=== PATIENT | female | born 1955 | race Caucasian/White ===

== ENCOUNTER 2018-04-10 20:43 | Emergency (ER) | payer OTHER ==
[~2018-04-10] VITALS: Ht 158.8 cm; Wt 87.0 kg
[~2018-04-10 20:43] MED LIST: ASPI-320 PO; ATOR10TA82 PO; EFF50 PO; FLUT0.15 INH; HYZ/10015 PO; LEVO137T3 PO; LMC25 PO; LPR25 PO; PLV75 PO
[2018-04-10 20:53] VITALS: BP 143/69; PULSE 80; TEMP 36.7; O2SAT 96; Ht 158.8 cm; Wt 87.0 kg
--- NOTE | 2018-04-10 21:40 | EMERGENCY ROOM VISIT NOTE ---
History First contact with patient: 20:56 Chief Complaint: BITE Stated Complaint: SNAKE BITE ON R FINGER History of Present Illness The patient is a 62 year old female who presents to the Emergency Room via private vehicle with complaints of "snake bite on right finger". The patient states earlier today about 45 minutes prior to arrival she was at home, when she noticed a snake in the doorway, and she bent down to throat out of the house. She notes that when she did so it bit her on the right fourth digit on the lateral aspect. She notes that since that time she has felt well and has had no symptoms. She has no swelling in the finger. She believes it is a milk snake. She does not think it is a copperhead. The female in the room presents a picture of the snake. Patient notes her tetanus is up-to-date. Review of Systems A complete 6-point Review of Systems was discussed with the patient, with pertinent positives and negatives listed in the History of Present Illness. All remaining Review of Systems questions can be considered negative unless otherwise specified. Past Medical/Surgical History Medical Problems: (1) Anxiety (2) Depression (3) Hyperlipidemia (4) Hypertension (5) Hypothyroidism (6) Obesity (7) Tobacco abuse Surgical Problems: (1) S/P cataract surgery Family History FH: CABG (coronary artery bypass surgery) FATHER Hypertension FATHER Stent BROTHER SISTER Stroke FATHER Social History Smoking Status: Current Every Day Smoker Drug Use: none Marital Status: in relationship Housing Status: lives with friends Occupation Status: employed Current/Historical Medications Scheduled Aspirin (Aspirin EC Low Dose), 81 MG PO QAM Atorvastatin (Lipitor), 20 PO QAM Clopidogrel Bisulfate (Clopidogrel), 75 MG PO QAM Hctz/Losartan (Hyzaar 25MG/100MG), 1 TAB PO DAILY Lamotrigine (Lamotrigine), 25 MG PO QAM Levothyroxine Sodium (Levothyroxine Sodium), 137 MCG PO DAILY Metoprolol Tartrate (Lopressor), 25 MG PO Q12 Venlafaxine Hcl (Effexor *), 75 MG PO DAILY Miscellaneous Medications Fluticasone Propionate (Nasal) (Flonase Allergy Relief), 2 SPRAYS INH Physical Exam Vital Signs Date Time Temp Pulse Resp B/P (MAP) Pulse Ox O2 Delivery O2 Flow Rate FiO2 04/10/18 20:53 36.7 80 20 143/69 96 Room Air Physical Exam VITAL SIGNS - Vital signs and nursing notes were reviewed. Stable. Afebrile. GENERAL -62-year-old female appearing her stated age who is in no acute distress. She is sitting upright talking without difficulty. Communicates well with provider and answers questions appropriately. SKIN -on the lateral aspect of the patient's right fourth digit there are small abrasions noted with potential puncture wound but no separation of the skin. No active bleeding. No swelling. No erythema. HEAD - NC/AT. EYES -sclera anicteric. EARS - No deformities of external structures noted on gross examination bilaterally. NOSE - Midline and without cyanosis. No epistaxis or purulent drainage noted. Septum midline without deviation or septal hematoma noted. MOUTH/OROPHARYNX - Without perioral cyanosis. Airway widely patent. EXTREMITIES - No clubbing or peripheral cyanosis. Skin changes noted above. Full range of motion of the right fourth digit. No tenderness. NEUROLOGIC - Cranial nerves II through XII grossly intact. Sensory intact to light touch throughout. PSYCH - A&O, and cooperates fully with examiner. Pt is very pleasant and interacts well with examiner. Medical Decision & Procedures Medical Decision Patient was seen and evaluated as above in room D5. Review was performed of nursing notes and vital signs. Picture appears to be an eastern milk snake. I do not suspect this to be poisonous. 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 Patient declined this, noting that she does not believe it is a poisonous snake and would like to go home. I will respect patient's wishes, and I cleansed the wound with Betadine and normal saline and placed a bacitracin dressing. Per request she was discharged home and is to follow with the family doctor or return with worsening. Case discussed with the attending physician. The patient was educated upon management, had questions answered prior to discharge, and was discharged home in good condition. While the patient was she exhibited no signs of anaphylaxis or allergic reaction. She had no pain in the finger, no swelling in the finger. In the evaluation and treatment of this patient the following differential diagnoses were entertained: Snake bite, anaphylaxis, among others. Impression Primary Impression: Snake bite Departure Information Dispostion Home / Self-Care Condition GOOD Referrals Zari Yarbrough M.D. (PCP) Patient Instructions My [facility] Additional Instructions Proper wound care is essential for adequate wound healing and infection prevention. You can shower and clean the wound with soap and water. Do not scour over the wound, pat dry with a towel. Look for signs of infection of the wound including: increased pain, swelling, foul discharge, streaking, or increased temperature. If any of these are noticed you should return to the Emergency Department for further assessment and treatment. As with any laceration you may have received nerve damage to the surrounding tissues. This damage may or may not be permanent. If you develop any swelling of the hand, trouble breathing, hives or any new/ concerning symptoms please return immediately. Return to the emergency department if your symptoms worsen despite treatment course outlined above.
== END 2018-04-10 21:56 | disposition home or self-care (01) ==
LOC: C.EDB 20:45 → C.EDD 21:56
DX: S61.254A Open bite of right ring finger without damage to nail, initial encounter (principal); F32.9 Major depressive disorder, single episode, unspecified; E78.5 Hyperlipidemia, unspecified; I10 Essential (primary) hypertension; E03.9 Hypothyroidism, unspecified; Z79.82 Long term (current) use of aspirin; Z79.899 Other long term (current) drug therapy; F17.200 Nicotine dependence, unspecified, uncomplicated; W59.11XA Bitten by nonvenomous snake, initial encounter

== ENCOUNTER 2019-10-08 15:40 | Observation (INO) ==
--- OUTSIDE RECORDS SUMMARY | 2019-10-08 15:43 | External Medical Summary | Continuity of Care Document ---
:1955 Author Name Rudy Astorga Address Unavailable Unavailable , Care Team Providers Name Role Phone Cinthia [email or web address] PCP, UNKNOWN Unavailable Unavailable Problems Active medical history not documented Allergies and Adverse Reactions Allergy history not documented Medications Medications not documented Procedures Procedures not documented Immunizations Immunizations not documented Plan of Treatment Planned Observations Planned Goals not documented Results No Known Results Results not documented
[2019-10-08 16:49] LABS: Hematocrit (blood only) 39.7 % (37-47); Hemoglobin 13.5 g/dL (12.0-16.0); Immature Granulocytes # (auto) 0.01 K/uL (0.00-0.02); Immature Granulocytes % (auto) 0.2 %; Lymphocytes % (auto) 28.2 %; Mean Corpuscular Hemoglobin 32.5 pg (25-34); Mean Corpuscular Volume 95.4 fL (80-100); Mean Platelet Volume 9.9 fL (7.4-10.4); Monocytes # (auto) 0.44 K/uL (0.11-0.59); Monocytes % (auto) 10.4 %; Neutrophils % (auto) 61.2 %; Platelet Count 174 K/uL (130-400); RDW Coefficient of Variation 12.9 % (11.5-14.5); RDW Standard Deviation 45.1 fL (36.4-46.3); Red Blood Count 4.16 M/uL (4.2-5.4); White Blood Count 4.25 K/uL (4.8-10.8)
--- NOTE | 2019-10-08 16:52 | XRay Report ---
XR chest 1V portable CLINICAL HISTORY: Chest Pain pain COMPARISON STUDY: 10/28/2015 FINDINGS: The bones soft tissues and hemidiaphragms are normal. The cardiomediastinal silhouette is n ormal. The lungs are clear. The pulmonary vasculature is normal. IMPRESSION: Negative chest. ACT 112: Negative or not required by law. The above report was generated using voice recognition software. It may contain grammatical, syntax or spelling errors. Electronically signed by: Jadiel Grant M.D. 10/08/2019 4:51 PM
[2019-10-08 17:12] LABS: Alanine Aminotransferase 36 U/L (12-78); Albumin Level 3.8 gm/dl (3.4-5.0); Aspartate Aminotransferase 22 U/L (15-37); BUN Creatinine Ratio 15.6 (10-20); Blood Urea Nitrogen 14 mg/dl (7-18); Carbon Dioxide 28 mmol/L (21-32); Chloride 104 mmol/L (98-107); Creatinine Clr Calc Pharmacy 70.2 ml/min; Est GFR (African American) 82.2; Est GFR (Non-African American) 70.9; Glucose 91 mg/dl (70-99); Lipase 117 U/L (73-393); Magnesium 2.2 mg/dl (1.8-2.4); Potassium 3.9 mmol/L (3.5-5.1); Sodium 138 mmol/L (136-145)
[2019-10-08 17:17] LABS: Albumin Globulin Ratio 1.1 (0.9-2); Alkaline Phosphatase 72 U/L (45-117); Bilirubin,Total 0.5 mg/dl (0.2-1); Globulin 3.4 gm/dl (2.5-4.0); Total Protein 7.2 gm/dl (6.4-8.2); Troponin I < 0.015 ng/ml (0-0.045)
[2019-10-08] MEDS ORDERED: NITROGLYCERIN 2% OINTMENT 30GM TUBE EXT STA (17:21)
--- NOTE | 2019-10-08 17:26 | Emergency Department Note ---
Entered by Leisa Grady acting as a scribe for Deandre Jang MD History of Present Illness General Chief complaint: Cardiac Assessment Stated complaint: PAIN AND DISCONFORT IN CHEST Time Seen by Provider: 10/08/19 15:58 Source: patient History of Present Illness Onset (ago): hour(s) (this morning) Location: chest Maximum Pain Intensity: 10 Current Pain Intensity: 5 Quality: + other (tightness) Relieved By: + other (lying flat); not by movement Associated symptoms: no diaphoresis, no nausea/vomiting and no shortness of breath The patient is a 63 year old female who presents to the Emergency Room with complaints of chest tightness beginning this morning. The patient reports the pain as a 5/10. She notes lying flat helps to relieve the pain. She notes movement neither increases or decreases the pain. She states she is unsure if the pain traveled anywhere outside of her chest. The patient denies shortness of breath, sweating, and nausea. The patient reports a history of a blood clot 4 years ago. She reports a history of a VA and notes she had 2 stents placed. She denies blood thinners. The patient reports her current pain does not feel like either a blood clot or VA. Home Medications Home Medications Medication Instructions Recorded Confirmed Type amlodipine [Norvasc] 5 mg PO DAILY 10/08/19 10/08/19 History aspirin [Aspir-Low] 81 mg PO DAILY 10/08/19 10/08/19 History fluticasone propionate 2 spray INTRANASAL DAILY 10/08/19 10/08/19 History lamotrigine [Lamictal] 25 mg PO DAILY 10/08/19 10/08/19 History levothyroxine [Synthroid] 150 mcg PO DAILY 10/08/19 10/08/19 History losartan-hydrochlorothiazide 1 tab PO DAILY 10/08/19 10/08/19 History meclizine 25 mg PO TID PRN 10/08/19 10/08/19 History metoprolol succinate [Toprol XL] 50 mg PO DAILY 10/08/19 10/08/19 History ondansetron HCl [Zofran] 4 mg PO Q6 PRN 10/08/19 10/08/19 History rosuvastatin 40 mg PO DAILY 10/08/19 10/08/19 History venlafaxine [Effexor XR] 225 mg PO DAILY 10/08/19 10/08/19 History Allergies Allergy/AdvReac Type Severity Reaction Status Date / Time TOBIN Inhibitors Allergy Mild Unknown Verified 10/08/19 17:28 simvastatin Allergy Unknown . Verified 10/08/19 17:28 Sulfa (Sulfonamide Allergy Unknown UNKNOWN Unverified 10/08/19 17:28 Antibiotics) Past Med/Surg History Medical History Anxiety (Chronic) Depression (Chronic) Hyperlipidemia (Chronic) Hypertension (Chronic) Hypothyroidism (Chronic) Obesity (Chronic) Tobacco abuse (Chronic) Surgical History S/P cataract surgery (Chronic) Family History Other No pertinent family history Social History Preferred Language: Croatian Beliefs That Will Affect Care: None Current Living Situation: Spouse Feels Safe at Home: Yes Safety Concerns: Feels Safe At This Time Smoking Status: Heavy tobacco smoker Hx Alcohol Use: Yes Alcohol type: beer Hx Substance Use: No Review of Systems See HPI for pertinent positives & negatives. and A total of 10 systems reviewed and were otherwise negative Physical Exam Vital Signs Vital Signs - 24 hr 10/08/19 15:52 10/08/19 16:15 10/08/19 16:43 Temperature 37.1 C Temperature Source Oral Pulse Rate 84 Pulse Rate [Finger] 72 Pulse Rhythm Regular Pulse Strength Normal Respiratory Rate 20 20 Respiratory Effort / Characteristics Non-Labored Spontaneous Respiratory Depth Normal Respiratory Pattern Regular Blood Pressure 136/82 Blood Pressure [Right Arm] 144/87 H Blood Pressure Mean 100 Blood Pressure Mean [Right Arm] 106 Blood Pressure Position Sitting Pulse Oximetry 96 97 Oxygen Delivery Method Room Air Room Air Room Air Sepsis Recent Fever Within 48 Hours No Sepsis Action Taken by Nursing No Action Required 10/08/19 17:31 10/08/19 18:48 Temperature Temperature Source Pulse Rate Pulse Rate [Finger] 75 79 Pulse Rhythm Pulse Strength Respiratory Rate 20 20 Respiratory Effort / Characteristics Respiratory Depth Respiratory Pattern Blood Pressure Blood Pressure [Right Arm] 130/79 138/68 Blood Pressure Mean Blood Pressure Mean [Right Arm] 96 91 Blood Pressure Position Pulse Oximetry 95 97 Oxygen Delivery Method Room Air Room Air Sepsis Recent Fever Within 48 Hours Sepsis Action Taken by Nursing GENERAL: Patient is in no acute distress. HEENT: No acute trauma, normocephalic atraumatic, mucous membranes moist, no nasal congestion, no scleral icterus. NECK: No stridor, no adenopathy, no meningismus, trachea is midline. LUNGS: Clear to auscultation bilaterally, no wheeze, no rhonchi, breath sounds equal. HEART: 2/6 systolic murmur heard best in right sternal border. RRR. CHEST: Nontender chest wall. ABDOMEN: Soft, nontender, bowel sounds positive, no hernias, no peritonitis. EXTREMITIES: No cyanosis or edema, full range of motion of all the joints without pain or difficulty, no signs for acute trauma. NEUROLOGIC: Oriented x 3, no acute motor or sensory deficits, no focal weakness. SKIN: No rash, no jaundice, no diaphoresis. Course Course 1610: Past medical records reviewed. The patient was evaluated in room B02. A complete history and physical exam was performed. 1850: Upon reevaluation, I discussed findings and results with the patient. She verbalized agreement of the treatment plan. [facility] The patient will be evaluated for further management and care. Administered Medications Enoxaparin Sodium (Lovenox) 40 mg SQ DAILY@2200 JAM Stop: 11/07/19 22:14 Last Admin: 10/08/19 23:31 Dose: Not Given Documented by: [id number] Discontinued Medications Aspirin (Aspirin) 324 mg PO NOW STA Stop: 10/08/19 20:19 Last Admin: 10/08/19 20:27 Dose: 324 mg Documented by: [id number] Famotidine (Pepcid) 20 mg PO ONE ONE Stop: 10/08/19 22:16 Last Admin: 10/08/19 23:31 Dose: Not Given Documented by: [id number] Nitroglycerin (Nitro-Bid 2%) 1 inch EXT NOW STA Stop: 10/08/19 17:22 Last Admin: 10/08/19 17:30 Dose: 1 inch Documented by: [id number] Medical Decision Making Differential Diagnosis Differential Diagnosis: angina, VA, musculoskeletal pain, reflux, anemia, gastritis, PE Medical Records Attestation: I reviewed the patient's medical records. Home Medications Current Medication List: was personally reviewed by me Laboratory Data Attestation: I reviewed the patient's lab results. Result diagrams: 10/08/19 16:35 10/08/19 16:35 Lab Results 10/08/19 10/08/19 10/08/19 Range/Units 16:35 16:35 16:35 WBC 4.25 L (4.8-10.8) K/uL RBC 4.16 L (4.2-5.4) M/uL Hgb 13.5 (12.0-16.0) g/dL Hct 39.7 (37-47) % MCV 95.4 (80-100) fL MCH 32.5 (25-34) pg MCHC 34.0 (32-36) g/dL RDW Std Deviation 45.1 (36.4-46.3) fL RDW Coeff of Vick 12.9 (11.5-14.5) % Plt Count 174 (130-400) K/uL MPV 9.9 (7.4-10.4) fL Immature Gran % (Auto) 0.2 % Neut % (Auto) 61.2 % Lymph % (Auto) 28.2 % [place] % (Auto) 10.4 % Eos % (Auto) 0.0 % Baso % (Auto) 0.0 % Immature Gran # (Auto) 0.01 (0.00-0.02) K/uL Neut # (Auto) 2.60 (1.4-6.5) K/uL Lymph # (Auto) 1.20 (1.2-3.4) K/uL [place] # (Auto) 0.44 (0.11-0.59) K/uL Eos # (Auto) 0.00 (0-0.5) K/uL Baso # (Auto) 0.00 (0-0.2) K/uL PT 10.4 (9.0-12.0) Seconds INR 1.0 (0.9-1.1) APTT 24.8 (21.0-31.0) Seconds PTT Ratio 0.9 D-Dimer 330 (0-500) ug/L FEU Sodium 138 (136-145) mmol/L Potassium 3.9 (3.5-5.1) mmol/L Chloride 104 (98-107) mmol/L Carbon Dioxide 28 (21-32) mmol/L Anion Gap 6.0 (3-11) BUN 14 (7-18) mg/dl Creatinine 0.87 (0.6-1.2) mg/dl Est Cr Clr Drug Dosing 70.2 ml/min Est GFR ( Amer) 82.2 Est GFR (Non-Af Amer) 70.9 BUN/Creatinine Ratio 15.6 (10-20) Glucose 91 (70-99) mg/dl Calcium 9.0 (8.5-10.1) mg/dl Magnesium 2.2 (1.8-2.4) mg/dl Total Bilirubin 0.5 (0.2-1) mg/dl AST 22 (15-37) U/L ALT 36 (12-78) U/L Alkaline Phosphatase 72 (45-117) U/L Troponin I < 0.015 (0-0.045) ng/ml Total Protein 7.2 (6.4-8.2) gm/dl Albumin 3.8 (3.4-5.0) gm/dl Globulin 3.4 (2.5-4.0) gm/dl Albumin/Globulin Ratio 1.1 (0.9-2) Lipase 117 (73-393) U/L TSH (0.300-4.500) uIu/ml 10/08/19 Range/Units 16:35 WBC (4.8-10.8) K/uL RBC (4.2-5.4) M/uL Hgb (12.0-16.0) g/dL Hct (37-47) % MCV (80-100) fL MCH (25-34) pg MCHC (32-36) g/dL RDW Std Deviation (36.4-46.3) fL RDW Coeff of Vick (11.5-14.5) % Plt Count (130-400) K/uL MPV (7.4-10.4) fL Immature Gran % (Auto) % Neut % (Auto) % Lymph % (Auto) % [place] % (Auto) % Eos % (Auto) % Baso % (Auto) % Immature Gran # (Auto) (0.00-0.02) K/uL Neut # (Auto) (1.4-6.5) K/uL Lymph # (Auto) (1.2-3.4) K/uL [place] # (Auto) (0.11-0.59) K/uL Eos # (Auto) (0-0.5) K/uL Baso # (Auto) (0-0.2) K/uL PT (9.0-12.0) Seconds INR (0.9-1.1) APTT (21.0-31.0) Seconds PTT Ratio D-Dimer (0-500) ug/L FEU Sodium (136-145) mmol/L Potassium (3.5-5.1) mmol/L Chloride (98-107) mmol/L Carbon Dioxide (21-32) mmol/L Anion Gap (3-11) BUN (7-18) mg/dl Creatinine (0.6-1.2) mg/dl Est Cr Clr Drug Dosing ml/min Est GFR ( Amer) Est GFR (Non-Af Amer) BUN/Creatinine Ratio (10-20) Glucose (70-99) mg/dl Calcium (8.5-10.1) mg/dl Magnesium (1.8-2.4) mg/dl Total Bilirubin (0.2-1) mg/dl AST (15-37) U/L ALT (12-78) U/L Alkaline Phosphatase (45-117) U/L Troponin I (0-0.045) ng/ml Total Protein (6.4-8.2) gm/dl Albumin (3.4-5.0) gm/dl Globulin (2.5-4.0) gm/dl Albumin/Globulin Ratio (0.9-2) Lipase (73-393) U/L TSH 0.918 (0.300-4.500) uIu/ml Imaging Data Radiologist's Impression: Radiology results as stated below per my review and the radiologist's interpretation: XR chest 1V portable CLINICAL HISTORY: Chest Pain pain COMPARISON STUDY: 10/28/2015 FINDINGS: The bones soft tissues and hemidiaphragms are normal. The cardiomediastinal silhouette is normal. The lungs are clear. The pulmonary vasculature is normal. IMPRESSION: Negative chest. ACT 112: Negative or not required by law. The above report was generated using voice recognition software. It may contain grammatical, syntax or spelling errors. Electronically signed by: Jadiel Grant M.D. 10/08/2019 4:51 PM ECG Data Attestation: I personally reviewed and interpreted this ECG as follows: Indication: + chest pain Rate (beats per minute): 76 Rhythm: + normal sinus ECG Intervals/blocks: + Normal QT-c (411) ECG ST segments: no ST elevation ECG Findings: no PVCs Blood Pressure Blood Pressure Findings: Elevated blood pressure Blood Pressure Disposition: further management by hospitalist MDM Narrative There is no leukocytosis or concerning anemia. No coagulopathy. No significant electrolyte abnormality or kidney failure. No concerning liver enzyme elevation. Patient did not have any evidence for pancreatitis. EKG showed a sinus rhythm, no acute ischemia. Cardiac enzyme testing x1 was not consistent with acute cardiac injury. Chest film did not show pneumonia or mediastinal widening. D-dimer testing was negative. With a negative d-dimer and my low suspicion for PE, I will stop the work-up for this diagnosis. The patient was given nitroglycerin paste, this did seem to improve her pain. The patient has a cardiac history. She presents with chest pain which appears to have improved with nitroglycerin. I do think further cardiac work-up is warranted. At this point, the cause of the pain is unclear. I did speak to the patient and geriatric case manager. The on-call hospitalist was consulted. Continuous Cardiac Monitoring: An order was placed for continuous cardiac monitoring. The monitor shows a rate of 74 with normal sinus rhythm. Impression & Plan Chest pain, precordial, History of VA (myocardial infarction), History of pulmonary embolus (PE) Discharge Plan Visit Data *Final* Discharge Date/Time: 10/08/19 20:42 Chief Complaint: Cardiac Assessment Stated Complaint: PAIN AND DISCONFORT IN CHEST ED Provider: Deandre Jang Discharge Problem: Chest pain, precordial, History of VA (myocardial infarction), History of pulmonary embolus (PE) Patient Disposition: Being Evaluated by Hospitalist Discharge Instructions Interventions: ED Discharge Assessment Last Done: 10/08/19 20:42 The marbellaibe's documentation has been prepared under my direction and personally reviewed by me in its entirety. I confirm that the note above accurately refl ects all work, treatment, procedures, and medical decision making performed by me.
[2019-10-08 18:38] LABS: D Dimer 330 ug/L FEU (0-500); Partial Thromboplastin Ratio 0.9; Partial Thromboplastin Time 24.8 Seconds (21.0-31.0); Prothrombin Time 10.4 Seconds (9.0-12.0)
--- NOTE | 2019-10-08 20:17 | History & Physical Report ---
Date of Service October 08, 2019 Assessment & Plan (1) Chest pain: (2) CAD (coronary artery disease): EKG is normal sinus rhythm, rate of 76, AR 138, QRS 82, QTc 411, left axis deviation, no ischemic changes. Troponin is negative Atypical chest pain Cardiac vs GI related Per paradi tender outpatient notes, patient has history of [place], inferior wall status post PCI with 2 bare-metal stents with extensive atherosclerotic disease in RCA, residual proximal and distal RCA stenosis of 20 to 30%, ostial 20 to 30% left main stenosis, 30% proximal LAD stenosis, 30% proximal LCx stenosis, 50 to 70% mid LCx stenosis involving origin of marginal and 75% ostial stenosis. TTE from October 2015 showed normal LV, mild concentric LVH, mild hypokinesis of inferior wall at the base with EF of 60 to 65%. We will trend troponin front desk monitor overnight Aspirin 325 mg Patient was supposed to have TTE in August 2019. Will get TTE on this admission. (3) Hypertension: Blood pressure control. Continue home antihypertensives [amlodipine, losartan hydrochlorothiazide] (4) Tobacco abuse: Counseled on need for smoking cessation (5) Depression: Stable. Continue home medication (6) Hypothyroidism: Continue home levothyroxine Get TSH (7) DVT prophylaxis: Lovenox sq History of Present Illness 63-year-old woman with history of hypertension, acute inferior wall [place] in 2016 status post PCI with bare-metal stent, depression who presented with chest pain that started on waking up this morning. Chest pain is described as achy, about 4/10, not referred, not associated with shortness of breath, nausea, vomiting or diaphoresis. Patient reported doing some house chores yesterday but did not have any chest pain or shortness of breath at that time. Reports adherence to her medication. On presentation to the emergency room,Blood pressure is 136/82, pulse rate of 96, EKG showed normal sinus rhythm without ischemic changes. Troponin is negative. Patient got nitro. At the time of my evaluation, patient reports chest pain is reduced to about 2/10 with same characteristics. Primary Care Provider: Carolina Sawyer DO Allergies Allergy/AdvReac Type Severity Reaction Status Date / Time TOBIN Inhibitors Allergy Mild Unknown Verified 10/08/19 17:28 simvastatin Allergy Unknown . Verified 10/08/19 17:28 Sulfa (Sulfonamide Allergy Unknown UNKNOWN Unverified 10/08/19 17:28 Antibiotics) Home Medications Home Medications Medication Instructions Recorded Confirmed Type amlodipine [Norvasc] 5 mg PO DAILY 10/08/19 10/08/19 History aspirin [Aspir-Low] 81 mg PO DAILY 10/08/19 10/08/19 History fluticasone propionate 2 spray INTRANASAL DAILY 10/08/19 10/08/19 History lamotrigine [Lamictal] 25 mg PO DAILY 10/08/19 10/08/19 History levothyroxine [Synthroid] 150 mcg PO DAILY 10/08/19 10/08/19 History losartan-hydrochlorothiazide 1 tab PO DAILY 10/08/19 10/08/19 History meclizine 25 mg PO TID PRN 10/08/19 10/08/19 History metoprolol succinate [Toprol XL] 50 mg PO DAILY 10/08/19 10/08/19 History ondansetron HCl [Zofran] 4 mg PO Q6 PRN 10/08/19 10/08/19 History rosuvastatin 40 mg PO DAILY 10/08/19 10/08/19 History venlafaxine [Effexor XR] 225 mg PO DAILY 10/08/19 10/08/19 History Past Med/Surg History Social History Feels Safe at Home: Yes Smoking Status: Current every day smoker Review of Systems Constitutional: no fever, no chills, no sweats, no body aches and no fatigue Eyes: no discharge and no worsening vision Ear, Nose, Mouth, Throat: no ear pain, no ear discharge, no tinnitus and no hearing loss Respiratory: + dyspnea on exertion; no cough, no dyspnea, no pain on inspirati on and no wheezing Cardiovascular: + chest pain, + chest pain at rest and + dyspnea on exertion; no radiating jaw, neck or arm pain, no dyspnea, no dyspnea at rest, no orthopnea, no lightheadedness, no syncope, no edema and no calf pain Gastrointestinal: no abdominal pain, no heartburn, no nausea, no vomiting, no hematemesis, no dysphagia, no change in bowel habits, no blood in stools and no melena Genitourinary: no dysuria, no difficulty urinating, no urinary frequency, no urinary hesitancy and no urinary urgency Musculoskeletal: no back pain, no neck pain and no joint pain Neurologic: no gait abnormality, no unsteadiness, no localized weakness, no generalized weakness and no numbness Psychiatric: no depression, no change in appetite, no suicidal ideation and no anxiety Endocrine: no fatigue, no polydipsia, no polyphagia and no polyuria Physical Exam Physical Exam: General: Well nourished, well hydrated , Obese, no acute distress and not ill appearing Eyes: PERRL, conjunctivae normal, not pale, anicteric sclerae, EOM intact bilaterally ENMT: External ear and nose normal, oropharynx normal Neck: Normal visual inspection, no tracheal deviation, no swelling noted Respiratory: Normal respiratory effort, no respiratory distress, lungs clear to auscultation, no crackles and no wheezes Cardiovascular: Pulse is RRR. S1 S2; normal peripheral pulses, no pedal edema Chest (Breasts): Chest: normal inspection of chest, No tenderness on palpation Gastrointestinal (Abdomen): Abdomen is not distended, soft, non-tender to palpation, no guarding, no palpable hepatosplenomegaly, normal bowel sounds Musculoskeletal: No cyanosis or clubbing, all extremities motor strength 5/5 Genitourinary: No CVA tenderness Skin: No rash noted on gross inspection, No ulcers noted Neurologic: Alert and oriented x 3, No focal weakness, sensation grossly intact Psychiatric: Euthymic affect, normal judgement Results & Data Vital Signs (Past 12 Hours) Vital Signs Temp Pulse Pulse Resp BP BP Pulse Ox 10/08/19 18:48 79 20 138/68 97 10/08/19 17:31 75 20 130/79 95 10/08/19 16:43 72 20 144/87 H 97 10/08/19 15:52 37.1 C 84 20 136/82 96 Code Status & VTE Plan VTE Prophylaxis Plan VTE Prophylaxis will be ordered: Yes
[2019-10-08] MEDS ORDERED: ASPIRIN CHEW 324 MG PO STA (20:18)
[2019-10-08] MEDS ORDERED: ENOXAPARIN INJ 40 MG/0.4 ML SYR SQ SCH (22:15)
[2019-10-08] MEDS ORDERED: FAMOTIDINE 20 MG TAB PO ONE (22:15)
[2019-10-09 04:13] LABS: Hematocrit (blood only) 37.3 % (37-47); Hemoglobin 12.8 g/dL (12.0-16.0); Mean Corpuscular Hemoglobin 32.5 pg (25-34); Mean Corpuscular Hgb Conc 34.3 g/dL (32-36); Mean Corpuscular Volume 94.7 fL (80-100); Mean Platelet Volume 9.6 fL (7.4-10.4); Platelet Count 143 K/uL (130-400); RDW Standard Deviation 45.2 fL (36.4-46.3); Red Blood Count 3.94 M/uL (4.2-5.4); White Blood Count 4.36 K/uL (4.8-10.8)
[2019-10-09 04:29] LABS: BUN Creatinine Ratio 22.3 (10-20); Blood Urea Nitrogen 20 mg/dl (7-18); Calcium 8.8 mg/dl (8.5-10.1); Carbon Dioxide 30 mmol/L (21-32); Chloride 105 mmol/L (98-107); Est GFR (African American) 77.8; Est GFR (Non-African American) 67.1; Glucose 109 mg/dl (70-99); Potassium 3.6 mmol/L (3.5-5.1); Sodium 139 mmol/L (136-145)
[2019-10-09 04:34] LABS: Troponin I < 0.015 ng/ml (0-0.045)
[2019-10-09] MEDS ORDERED: LEVOTHYROXINE SODIUM 150 MCG TABLET PO SCH (06:30)
[2019-10-09 06:58] LABS: Estimated Average Glucose 123 mg/dl; Hemoglobin A1C 5.9 % (4.5-5.6)
[2019-10-09] MEDS ORDERED: lamoTRIgine 25 MG TAB PO SCH (09:00)
[2019-10-09] MEDS ORDERED: ROSUVASTATIN CALCIUM 20 MG TAB PO SCH (09:00)
[2019-10-09] MEDS ORDERED: AMLODIPINE BESYLATE 5 MG TAB PO SCH (09:00)
[2019-10-09] MEDS ORDERED: ASPIRIN 81 MG ECTAB PO SCH (09:00)
[2019-10-09] MEDS ORDERED: METOPROLOL SUCC 50MG EXT REL TAB PO SCH (09:00)
[2019-10-09] MEDS ORDERED: LOSARTAN/HCTZ 50/12.5MG TAB PO SCH (09:00)
[2019-10-09] MEDS ORDERED: VENLAFAXINE HCL XR 75 MG CAPXR PO SCH (09:00)
--- NOTE | 2019-10-09 15:24 | Discharge Summary ---
Date of Service October 09, 2019 Admission HPI Per Admitting Provider 63-year-old woman with history of hypertension, acute inferior wall [place] in 2016 status post PCI with bare-metal stent, depression who presented with chest pain that started on waking up this morning. Chest pain is described as achy, about 4/10, not referred, not associated with shortness of breath, nausea, vomiting or diaphoresis. Patient reported doing some house chores yesterday but did not have any chest pain or shortness of breath at that time. Reports adherence to her medication. On presentation to the emergency room,Blood pressure is 136/82, pulse rate of 96, EKG showed normal sinus rhythm without ischemic changes. Troponin is negative. Patient got nitro. At the time of my evaluation, patient reports chest pain is reduced to about 2/10 with same characteristics. Primary Care Provider: Carolina Sawyer, DO Admission Exam Per Admitting Provider General: Well nourished, well hydrated , Obese, no acute distress and not ill appearing Eyes: PERRL, conjunctivae normal, not pale, anicteric sclerae, EOM intact bilaterally ENMT: External ear and nose normal, oropharynx normal Neck: Normal visual inspection, no tracheal deviation, no swelling noted Respiratory: Normal respiratory effort, no respiratory distress, lungs clear to auscultation, no crackles and no wheezes Cardiovascular: Pulse is RRR. S1 S2; normal peripheral pulses, no pedal edema Chest (Breasts): Chest: normal inspection of chest, No tenderness on palpation Gastrointestinal (Abdomen): Abdomen is not distended, soft, non-tender to palpa tion, no guarding, no palpable hepatosplenomegaly, normal bowel sounds Musculoskeletal: No cyanosis or clubbing, all extremities motor strength 5/5 Genitourinary: No CVA tenderness Skin: No rash noted on gross inspection, No ulcers noted Neurologic: Alert and oriented x 3, No focal weakness, sensation grossly intact Psychiatric: Euthymic affect, normal judgement Principal Diagnosis Chest pain d/t costochondritis Discharge Exam General: Well nourished, well hydrated ,Obese, no acute distress and not ill appearing Eyes: PERRL, conjunctivae normal, not pale, anicteric sclerae, EOM intact bilaterally ENMT: External ear and nose normal, oropharynx normal Neck: Normal visual inspection, no tracheal deviation, no swelling noted Respiratory: Normal respiratory effort, no respiratory distress, lungs clear to auscultation, no crackles and no wheezes Cardiovascular: Pulse is RRR. S1 S2; normal peripheral pulses, no pedal edema Chest (Breasts): Chest: normal inspection of chest Gastrointestinal (Abdomen): Abdomen is not distended, soft, non-tender to palpation, no guarding, no palpable hepatosplenomegaly, normal bowel sounds Musculoskeletal: No cyanosis or clubbing, all extremities motor strength 5/5 Genitourinary: No CVA tenderness Skin: No rash noted on gross inspection, No ulcers noted Neurologic: Alert and oriented x 3, No focal weakness, sensation grossly intact Psychiatric: Euthymic affect, normal judgement Discharge Data Allergies Allergy/AdvReac Type Severity Reaction Status Date / Time TOBIN Inhibitors Allergy Mild Unknown Verified 10/08/19 17:28 simvastatin Allergy Unknown . Verified 10/08/19 17:28 Sulfa (Sulfonamide Allergy Unknown UNKNOWN Unverified 10/08/19 17:28 Antibiotics) Consultations 10/08/19 19:19 ED Decision to Admit Stat Hospital Course (1) Chest pain: (2) CAD (coronary artery disease): Atypical chest pain Cardiac vs. MSK, most likely Costochondritis given history and negative cardiac work- up Pt was shoveling yesterday, now it feels to her as MSK pain - currently pain completely resolved and pt is inquiring about going home - pt was monitored on telemetry overnight, received ASA 325 mg EKG is normal sinus rhythm, rate of 76, [place] 138, QRS 82, QTc 411, left axis deviation, no ischemic changes. Troponin is negative x3 Current Echo (10/09/2019) - EF 60-65%,Normal LV systolic function. Grade 1 diastolic dysfunction, Moderate concentric LVH, no segmental LV wall motion abnormality noted. Per javascript ui developer outpatient notes, patient has history of [place], inferior wall status post PCI with 2 bare-metal stents with extensive atherosclerotic disease in RCA, residual proximal and distal RCA stenosis of 20 to 30%, ostial 20 to 30% left main stenosis, 30% proximal LAD stenosis, 30% proximal LCx stenosis, 50 to 70% mid LCx stenosis involving origin of marginal and 75% ostial stenosis. TTE from October 2015 showed normal LV, mild concentric LVH, mild hypokinesis of inferior wall at the base with EF of 60 to 65%. - plan to D/C home, recommend to check BP at home and keep a log of these numbers (3) Hypertension: Blood pressure control. Continue home antihypertensives [amlodipine, losartan hydrochlorothiazide] - cont. to monitor BP at home and keep a log of these numbers, provide your PCP and / or javascript ui developer with the log so your medications can be further adjusted (4) Tobacco abuse: Counseled on need for smoking cessation (5) Depression: Stable. Continue home medication (6) Hypothyroidism: Continue home levothyroxine Get TSH (7) DVT prophylaxis: Lovenox sq Total Time Total Time Spent Total Time Spent (In Minutes): 40 Total Time Includes: Examination of the Patient, Discharge Planning and Medication Reconciliation Discharge Plan Discharge Items Patient Disposition: Home - Self-Care Reason For Visit: CHEST PAIN Discharge Diagnosis: Chest pain d/t costochondritis Activity: Resume your previous activity Activity Comment: as tolerated, ask for help as needed Non-emergency contact: Primary Care Provider Call non-emergency contact if: you have any medication questions and your symptoms worsen Follow-up/Referrals: Carolina Sawyer DO [Primary Care Provider] - 10/11/19 10:45 am Diet: Heart Healthy Addtl Attending Provider Instructions: Follow up with primary care doctor on 10/11/2019 at 10:45 AM. Recommend to monitor blood pressure at home and keep a log of these numbers. Make sure to provide your doctor (primary and/or javascript ui developer) with this log. If you continue to have mild chest pain, take tylenol 1000 mg 3 times a day, up to 3,000 mg a day or Advil 200 mg every 4-6 hrs. If your chest pain worsen, and /or you experience shortness of breath or any other concerning symptoms, please seek medical attention. Pending Studies at Discharge: No Stand-Alone Forms: My [employer], Smoking Cessation Medications and DC Order Prescriptions: Continued venlafaxine [Effexor XR] 75 mg capsule,extended release 24hr 225 mg PO DAILY RF: 0 metoprolol succinate [Toprol XL] 50 mg tablet extended release 24 hr 50 mg PO DAILY RF: 0 ondansetron HCl [Zofran] 4 mg tablet 4 mg PO Q6 PRN (Reason: Nausea) RF: 0 amlodipine [Norvasc] 5 mg tablet 5 mg PO DAILY RF: 0 aspirin [Aspir-Low] 81 mg Tablet,Delayed Release (Dr/Ec) 81 mg PO DAILY RF: 0 lamotrigine [Lamictal] 25 mg tablet 25 mg PO DAILY RF: 0 losartan-hydrochlorothiazide 100-25 mg tablet 1 tab PO DAILY RF: 0 meclizine 25 mg tablet 25 mg PO TID PRN (Reason: DIZZYNESS) RF: 0 levothyroxine [Synthroid] 150 mcg tablet 150 mcg PO DAILY RF: 0 fluticasone propionate 50 mcg/actuation spray,suspension 2 spray INTRANASAL DAILY RF: 0 rosuvastatin 40 mg tablet 40 mg PO DAILY RF: 0 Discharge Orders: Discharge Order (Routine); Ordered 10/09/19 Ordered By: Ruy Maradiaga Admission Data Admit Date/Time: 10/08/19 19:59 Attending Provider: Ruy Maradiaga Admit Provider: Stacey Parsons I. Primary Care Provider: Carolina Sawyer Other Providers: Jesus Crawley Other Interventions: Discharge Summary Assessment (RN) Last Done: 10/09/19 14:43 DC Date/Time DO NOT enter until pt leaves facility: 10/09/19 15:48
--- NOTE | 2019-10-09 17:42 | Electrocardiogram Report ---
Test Reason : Blood Pressure : / mmHG Vent. Rate : 076 BPM Atrial Rate : 076 BPM P-R Int : 138 ms QRS Dur : 082 ms QT Int : 366 ms P-R-T Axes : 029 -02 019 degrees QTc Int : 411 ms Normal sinus rhythm possible Inferior infarct (cited on or before 28-OCT-2015) Abnormal ECG When compared with ECG of 28-OCT-2015 14:08, No significant change was found Confirmed by Anand Fitzgerald ([id number]) on 10/09/2019 5:41:52 PM Referred By: REFERRED SELF Confirmed By:Joni Fitzgerald
== END 2019-10-09 15:48 | disposition home or self-care (01) ==
LOC: 2S 15:40 → ED 15:40 → 2S 20:42